=== PATIENT | female | born 1995 | race Caucasian/White ===

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

== ENCOUNTER 2017-02-08 12:16 | Emergency (ER) | payer OTHER ==
[~2017-02-08] VITALS: Ht 165.1 cm; Wt 64.5 kg
[~2017-02-08 12:16] MED LIST changes: +ACET500C5 PO; +BENZ100C70 PO; +IBUP400T22 PO; +POLY10DR19 BOTH EYES; +SODI30SP2 NS
[2017-02-08 12:17] VITALS: Ht 165.1 cm; Wt 64.5 kg
[2017-02-08] MEDS ORDERED: CETI-240 PO (14:15)
--- NOTE | 2017-02-08 14:46 | ERD ---
ER Documentation Chief Complaint Chief Complaint right eye pain x 2 weeks HPI Otherwise healthy 22-year-old female presenting with a chief complaint of eye discharge 2 months. Discharge described as white. Nonpruritic, no change in vision. Patient states that this has happened in the past has spontaneously resolved. Has not taken any medications for these symptoms. Also describes associated congestion that occurs this time the year every year. Has not been diagnosed with any medical conditions. Denies fever, chills, difficulty breathing, chest pain, abdominal pain, nausea, vomiting, diarrhea, or constipation. Patient has no other complaints and describes no other associated manifestations. Nursing notes have been reviewed and are consistent with history given. ROS All systems reviewed and are negative except as per history of present illness. Medications Home Meds Active Scripts Cetirizine Hcl* (Cetirizine Hcl*) 10 Mg Tablet, 10 MG PO DAILY, #30 TAB Prov:ESTUARDO IZAGUIRRE PA-C 02/08/17 Benzonatate* (Tessalon Perle*) 100 Mg Capsule, 100 MG PO Q8H Y for COUGH for 14 Days, CAP Prov:DIONE GATES PA-C 07/22/16 Sodium Chloride (Saline Nasal [place]) 30 Ml [place], 30 ML NS BID for 14 Days, SPRAY Prov:DIONE GATES PA-C 07/22/16 Acetaminophen* (Tylophen*) 500 Mg Capsule, 1 CAP PO Q6H Y for PAIN AND OR ELEVATED TEMP, #20 CAP Prov:DIONE GATES PA-C 07/22/16 Ibuprofen* (Motrin*) 400 Mg Tab, 400 MG PO Q6, #30 TAB Prov:DIONE GATES PA-C 07/22/16 Polymyxin B Sulfate-TMP* (Polymyxin B-TMP Eye Drops*) 10 Ml Drops, 1 DROP BOTH EYES QID for 7 Days, EA Prov:DIONE GATES PA-C 07/22/16 Ondansetron (Ondansetron Odt) 4 Mg Tab.rapdis, 4 MG PO Q6H Y for NAUSEA AND/OR VOMITING, #10 TAB Prov:RAQUEL RAMOS PA-C 07/17/16 Ibuprofen* (Motrin*) 600 Mg Tab, 600 MG PO Q6, #30 TAB Prov:RAQUEL RAMOS PA-C 07/17/16 Ibuprofen* (Motrin*) 600 Mg Tab, 600 MG PO Q6H Y for PAIN AND OR ELEVATED TEMP, #30 TAB Prov:MARGUERITE HOLDEN MD 06/29/15 Reported Medications [no meds] No Conflict Check 09/30/11 Allergies Allergies: Coded Allergies: No Known Allergy (Unverified , 02/08/17) PMhx/Soc Medical and Surgical Hx: pt denies Medical Hx, pt denies Surgical Hx History of Surgery: No Anesthesia Reaction: No Hx Neurological Disorder: No Hx Respiratory Disorders: No Hx Cardiac Disorders: No Hx Psychiatric Problems: No Hx Miscellaneous Medical Probl: No Hx Alcohol Use: No Hx Substance Use: Yes (marijuana) Hx Tobacco Use: No Physical Exam Vitals Vital Signs Date Time Temp Pulse Resp B/P Pulse Ox O2 Delivery O2 Flow Rate FiO2 02/08/17 12:17 98.1 58 16 126/57 97 Physical Exam Const: Healthy appearing 22-year-old female no acute distress. Head: Atraumatic Eyes: Normal Conjunctiva. PERRLA, EOMI bilaterally. No nystagmus. ENT: Normal External Ears, Nose and Mouth. Neck: Full range of motion..~ No meningismus. Resp: Clear to auscultation bilaterally Cardio: Regular rate and rhythm, no murmurs. Cap refill less than 2 seconds. Radial pulses 2+ bilaterally. Abd: Soft, non tender, non distended. Normal bowel sounds Skin: No petechiae or rashes Back: No midline or flank tenderness Ext: No cyanosis, or edema Neur: Awake and alert Psych: Normal Mood and Affect Procedures/MDM 22-year-old female presenting with signs and symptoms most consistent with seasonal allergies. Patient will be started on Zyrtec with instructions to follow-up with PCP in the next 1-3 days. I have no suspicion for bacterial involvement, endangerment of vision, endangerment of airway or other life- threatening pathologies. I have spoke with the patient regarding their condition and future management. They have verbally responded that they understand their status and treatment plan. The patients vitals are stable, and their current condition is appropriate for discharge. The patient will be given discharge instructions with return precautions. Departure Diagnosis: Primary Impression: Eye problem Additional Impression: Environmental allergies Condition: Stable Patient Instructions: Nasal Allergies: Related Problems Additional Instructions: Follow up with your PCP within the next 1-3 days for a more thorough evaluation and a possible referral to a specialist. Return the the emergency department immediately if symptoms worsen or change. If you have any questions regarding medications, ask your pharmacist or us before you leave. If any adverse reactions occur while taking your medications, discontinue the treatment and return to the emergency department immediately. Take your medications as directed, and complete the entire course of treatment. ESTUARDO IZAGUIRRE PA-C Feb 08, 2017 14:46
== END 2017-02-08 14:27 | disposition home or self-care (01) ==
LOC: FTE 12:16
DX: H57.11 Ocular pain, right eye (principal)
CPT/HCPCS: 99283

== ENCOUNTER 2017-04-09 19:30 | Emergency (ER) | payer OTHER ==
[~2017-04-09] VITALS: Ht 160 cm; Wt 70.0 kg
[~2017-04-09 19:30] MED LIST changes: +CETI-240 PO
[2017-04-09 20:22] VITALS: Ht 160 cm; Wt 70.0 kg
[2017-04-09] MEDS ORDERED: ONDANSETRON 4 MG INJ IV STA (21:27)
[2017-04-09] MEDS ORDERED: KETOROLAC 30 MG INJ IV STA (21:27)
[2017-04-09 21:52] LABS: URINE BLOOD (Dip) POC Trace-lysed (NEGATIVE)
[2017-04-09 22:48] LABS: BASOPHIL # 0.1 10^3/ul (0.0-0.1); BASOPHILS % 0.5 % (0.0-2.0); EOSINOPHILS # 1.1 10^3/ul (0.0-0.5); EOSINOPHILS % 10.8 % (0.0-7.0); HEMOGLOBIN 13.7 g/dl (12.0-16.0); LYMPHOCYTES # 3.1 10^3/ul (0.8-2.9); LYMPHOCYTES % 31.1 % (18.0-55.0); MEAN CORPUSCULAR HEMOGLOBIN 31.9 pg (29.0-33.0); MEAN CORPUSCULAR HGB CONC 34.3 g/dl (32.0-37.0); MEAN CORPUSCULAR VOLUME 93.2 fl (72.0-104.0); MEAN PLATELET VOLUME 10.8 fl (7.4-10.4); MONOCYTE # 0.5 10^3/ul (0.3-0.9); MONOCYTES % 4.9 % (0.0-13.0); NEUTROPHIL # 5.2 10^3/ul (1.6-7.5); NEUTROPHILS % 52.5 % (30.0-74.0); PLATELET COUNT 238 10^3/UL (140-415); RED BLOOD COUNT 4.29 10^6/ul (4.20-5.40); RED CELL DISTRIBUTION WIDTH 12.3 % (11.5-14.5); WHITE BLOOD COUNT 9.8 10^3/ul (4.8-10.8)
[2017-04-09 23:05] LABS: ADD UMIC NO; UR ASCORBIC ACID NEGATIVE (NEGATIVE); UR BILIRUBIN (Dip) NEGATIVE (NEGATIVE); UR BLOOD (Dip) NEGATIVE (NEGATIVE); UR CLARITY SLIGHTLY CLOUDY (CLEAR); UR COLOR YELLOW (YELLOW); UR GLUCOSE (Dip) NEGATIVE (NEGATIVE); UR KETONES (Dip) NEGATIVE (NEGATIVE); UR LEUKOCYTE ESTERASE (Dip) NEGATIVE Leu/ul (NEGATIVE); UR MUCUS MANY /HPF (NONE SEEN); UR NITRITE (Dip) NEGATIVE (NEGATIVE); UR RBC 1 /HPF (0-5); UR SPECIFIC GRAVITY (Dip) 1.028 (1.003-1.030); UR SQUAMOUS EPITHELIAL CELL FEW /HPF (FEW); UR TOTAL PROTEIN (Dip) NEGATIVE (NEGATIVE); UR UROBILINOGEN (Dip) NEGATIVE (NEGATIVE)
[2017-04-09 23:57] LABS: ALBUMIN 4.2 g/dl (3.3-4.9); ALBUMIN/GLOBULIN RATIO 1.23; BILIRUBIN,INDIRECT 0.6 mg/dl (0-1.1); BILIRUBIN,TOTAL 0.6 mg/dl (0.2-1.3); CALCIUM 9.9 mg/dl (8.4-10.2); CREATININE 0.8 mg/dl (0.44-1.00); POTASSIUM 3.8 mmol/L (3.5-5.1); TOTAL PROTEIN 7.6 g/dl (6.1-8.1)
[2017-04-10] MEDS ORDERED: FAMOTIDINE 20 MG INJ IV ONE
--- NOTE | 2017-04-10 00:04 | ERD ---
ER Documentation Chief Complaint Chief Complaint abd pain, cough and fever 1 week HPI This is a 22-year-old female presents to ER with left upper abdominal pain, cough and fever 1 week. Patient states she has had a dry, nonproductive cough and tactile fevers at home. Patient reports left upper abdominal pain that has been worsening over the last week. No vomiting or diarrhea. No constipation. Patient describes pain as sharp. Pain is nonradiating. ROS All systems reviewed and are negative except as per history of present illness. Medications Home Meds Active Scripts Cetirizine Hcl* (Cetirizine Hcl*) 10 Mg Tablet, 10 MG PO DAILY, #30 TAB Prov:ESTUARDO IZAGUIRRE PA-C 02/08/17 Benzonatate* (Tessalon Perle*) 100 Mg Capsule, 100 MG PO Q8H Y for COUGH for 14 Days, CAP Prov:DIONE GATES PA-C 07/22/16 Sodium Chloride (Saline Nasal [place]) 30 Ml [place], 30 ML NS BID for 14 Days, SPRAY Prov:DIONE GATES PA-C 07/22/16 Acetaminophen* (Tylophen*) 500 Mg Capsule, 1 CAP PO Q6H Y for PAIN AND OR ELEVATED TEMP, #20 CAP Prov:DIONE GATES PA-C 07/22/16 Ibuprofen* (Motrin*) 400 Mg Tab, 400 MG PO Q6, #30 TAB Prov:DIONE GATES PA-C 07/22/16 Polymyxin B Sulfate-TMP* (Polymyxin B-TMP Eye Drops*) 10 Ml Drops, 1 DROP BOTH EYES QID for 7 Days, EA Prov:DIONE GATES PA-C 07/22/16 Ondansetron (Ondansetron Odt) 4 Mg Tab.rapdis, 4 MG PO Q6H Y for NAUSEA AND/OR VOMITING, #10 TAB Prov:RAQUEL RAMOS PA-C 07/17/16 Ibuprofen* (Motrin*) 600 Mg Tab, 600 MG PO Q6, #30 TAB Prov:RAQUEL RAMOS PA-C 07/17/16 Ibuprofen* (Motrin*) 600 Mg Tab, 600 MG PO Q6H Y for PAIN AND OR ELEVATED TEMP, #30 TAB Prov:MARGUERITE HOLDEN MD 06/29/15 Reported Medications [no meds] No Conflict Check 09/30/11 Allergies Allergies: Coded Allergies: No Known Allergy (Unverified , 02/08/17) PMhx/Soc Medical and Surgical Hx: pt denies Medical Hx, pt denies Surgical Hx History of Surgery: No Anesthesia Reaction: No Hx Neurological Disorder: No Hx Respiratory Disorders: No Hx Cardiac Disorders: No Hx Psychiatric Problems: No Hx Miscellaneous Medical Probl: No Hx Alcohol Use: No Hx Substance Use: Yes (marijuana) Hx Tobacco Use: No Smoking Status: Never smoker Physical Exam Vitals Vital Signs Date Time Temp Pulse Resp B/P Pulse Ox O2 Delivery O2 Flow Rate FiO2 04/09/17 20:22 98.1 54 20 108/68 99 Physical Exam Const: Alert Head: Atraumatic Eyes: Normal Conjunctiva ENT: Normal External Ears, Nose and Mouth. Neck: Full range of motion..~ No meningismus. Resp: Clear to auscultation bilaterally. No wheezing, rhonchi or crackles. No stridor or labored breathing. Cardio: Regular rate and rhythm, no murmurs Abd: Soft, non distended. Normal bowel sounds, left upper abdominal pain tenderness. splenomegaly Skin: No petechiae or rashes Back: No midline or flank tenderness Ext: No cyanosis, or edema Neur: Awake and alert Psych: Normal Mood and Affect Result Diagram: 04/09/17 2200 04/09/17 2332 Results 24 hrs Laboratory Tests Test 04/09/17 21:00 04/09/17 21:53 04/09/17 22:00 04/09/17 23:32 Urine Color YELLOW Urine Clarity SLIGHTLY CLOUDY Urine pH 6.0 Urine Specific Branch 1.028 Urine Ketones NEGATIVEmg/dL Urine Nitrite NEGATIVEmg/dL Urine Bilirubin NEGATIVEmg/dL Urine Urobilinogen NEGATIVEmg/dL Urine Leukocyte Esterase NEGATIVELeu/ul Urine Microscopic RBC 1/HPF Urine Microscopic WBC 2/HPF Urine Squamous Epithelial Cells FEW/HPF Urine Mucus MANY/HPF Urine Hemoglobin NEGATIVEmg/dL Urine Glucose NEGATIVEmg/dL Urine Total Protein NEGATIVEmg/dl Bedside Urine pH (LAB) 6.5 Bedside Urine Protein (LAB) Negative Bedside Urine Glucose (UA) Negative Bedside Urine Ketones (LAB) Trace Bedside Urine Blood Trace-lysed Bedside Urine Nitrite (LAB) Negative Bedside Urine Leukocyte Esterase (L Negative White Blood Count 9.810^3/ul Red Blood Count 4.2910^6/ul Hemoglobin 13.7g/dl Hematocrit 40.0% Mean Corpuscular Volume 93.2fl Mean Corpuscular Hemoglobin 31.9pg Mean Corpuscular Hemoglobin Concent 34.3g/dl Red Cell Distribution Width 12.3% Platelet Count 72190^3/UL Mean Platelet Volume 10.8fl Neutrophils % 52.5% Lymphocytes % 31.1% Monocytes % 4.9% Eosinophils % 10.8% Basophils % 0.5% Nucleated Red Blood Cells % 0.0/100WBC Neutrophils # 5.210^3/ul Lymphocytes # 3.110^3/ul Monocytes # 0.510^3/ul Eosinophils # 1.110^3/ul Basophils # 0.110^3/ul Nucleated Red Blood Cells # 0.010^3/ul Serum HCG, Qualitative NEGATIVE Sodium Level 141mmol/L Potassium Level 3.8mmol/L Chloride Level 104mmol/L Carbon Dioxide Level 26mmol/L Anion Gap 15 Blood Urea Nitrogen 13mg/dl Creatinine 0.80mg/dl Glucose Level 82mg/dl Calcium Level 9.9mg/dl Total Bilirubin 0.6mg/dl Direct Bilirubin 0.00mg/dl Indirect Bilirubin 0.6mg/dl Aspartate Amino Transf (AST/SGOT) 27IU/L Alanine Aminotransferase (ALT/SGPT) 32IU/L Alkaline Phosphatase 45IU/L Total Protein 7.6g/dl Albumin 4.2g/dl Globulin 3.40g/dl Albumin/Globulin Ratio 1.23 Lipase 92U/L Current Medications Medications (Trade) Dose Ordered Sig/Melina Route PRN Reason Start Time Stop Time Status Last Admin Dose Admin Ondansetron HCl (Zofran Inj) 4 mg ONCE STAT IV 04/09/17 21:27 04/09/17 21:29 DC 04/09/17 22:15 Ketorolac Tromethamine (Toradol) 30 mg ONCE STAT IV 04/09/17 21:27 04/09/17 21:29 DC 04/09/17 22:15 Procedures/MDM MDM: 22 year old female presents the emergency department for abdominal pain, cough and fever 1 week. Patient has left upper abdominal pain and tenderness on physical exam. Lung sounds are clear. Patient is afebrile vital signs are stable. CBC shows no significant anemia or infection. CMP shows no significant electrolyte imbalance. Normal creatinine and BUN. Normal lipase. Normal glucose. UA is negative for infection. Patient signed out to Deepa Johnson NP pending CT abdomen and pelvis. Departure Diagnosis: Primary Impression: Abdominal pain Condition: Stable MANOLO MORALES NP Apr 10, 2017 00:04
--- NOTE | 2017-04-10 00:33 | RADRPT ---
PROCEDURE: CT Abdomen and Pelvis without contrast. CLINICAL INDICATION: Left upper quadrant abdominal pain. TECHNIQUE: CT scan of the abdomen and pelvis was performed on a multidetector slice CT scanner. No intravenous contrast material was utilized. Sagittal and coronal reformatted images were obtained fr om the axial source images. Images were reviewed on a high-resolution PACS workstation. Exam CTDlvol = 6 mGy and DLP = 336 Gy-cm. One of the following 3 dose reduction techniques were used: Automated exposure control; adjustment of the mA and/or kV according to patient size; or use of iterative joy nstruction technique. DICOM images are available. COMPARISON: None. FINDINGS: There is no obstruction or ileus. The appendix is not identified. There is no secondary evidence fo r appendicitis.. There is no free fluid. The liver is overall normal in size. No intrahepatic lesions are identified. The gallbladder is norm al in appearance. There is no definite biliary ductal dilation. Pancreas is normal in appearance. Th e spleen is unremarkable. There are no adrenal masses. The aorta is normal caliber. There is a ill-defined hyperdensities in the bilateral renal medullary region. Kidneys are otherwise normal in appearance without hydronephrosis, mass or obstructing calculus. There is no perinephric collection. Ureters are of normal caliber and without evidence for an obstructing calculus The urina ry bladder is contracted. The uterus and ovaries are grossly unremarkable. Limited evaluation of the lung bases is unremarkable. There are bilateral L5 of the defects without spondylolisthesis. IMPRESSION: 1. 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 No dis crete obstructing calculus. No hydronephrosis. Collapsed urinary bladder. 2. No bowel obstruction or ileus. 3. Appendix not identified. No secondary evidence for appendicitis. 4. 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 RPTAT: HMVK .Rg Holland MD, Date Time Electronically viewed and signed by .Rg Holland MD, MD on 04/10/2017 00:33 .K/
[2017-04-10] MEDS ORDERED: ACET500C5 PO (01:01)
--- NOTE | 2017-04-10 01:07 | EN ---
Date/Time of Note Date/Time of Note DATE: 04/10/17 TIME: 01:04 ER Progress Note Patient signed out to me by Manolo Gu NP pending CT results. PROCEDURE: CT Abdomen and Pelvis without contrast. CLINICAL INDICATION: Left upper quadrant abdominal pain. TECHNIQUE: CT scan of the abdomen and pelvis was performed on a multidetector slice CT scanner. No intravenous contrast material was utilized. Sagittal and coronal reformatted images were obtained from the axial source images. Images were reviewed on a high-resolution PACS workstation. Exam CTDlvol = 6 mGy and DLP = 336 Gy-cm. One of the following 3 dose reduction techniques were used: Automated exposure control; adjustment of the mA and/or kV according to patient size; or use of iterative reconstruction technique. DICOM images are available. COMPARISON: None. FINDINGS: There is no obstruction or ileus. The appendix is not identified. There is no secondary evidence for appendicitis.. There is no free fluid. The liver is overall normal in size. No intrahepatic lesions are identified. The gallbladder is normal in appearance. There is no definite biliary ductal dilation. Pancreas is normal in appearance. The spleen is unremarkable. There are no adrenal masses. The aorta is normal caliber. There is a ill-defined hyperdensities in the bilateral renal medullary region. Kidneys are otherwise normal in appearance without hydronephrosis, mass or obstructing calculus. There is no perinephric collection. Ureters are of normal caliber and without evidence for an obstructing calculus The urinary bladder is contracted. The uterus and ovaries are grossly unremarkable. Limited evaluation of the lung bases is unremarkable. There are bilateral L5 of the defects without spondylolisthesis. IMPRESSION: 1. 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 No discrete obstructing calculus. No hydronephrosis. Collapsed urinary bladder. 2. No bowel obstruction or ileus. 3. Appendix not identified. No secondary evidence for appendicitis. 4. 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 RPTAT: HMVK .Rg Holland MD, Date Time Electronically viewed and signed by .Rg Holland MD, MD on 04/10/2017 00:33 .K/ CC: MANOLO GU NP I reexamined the patient. Patient is noted to have tenderness in the left lower ribs region, as well as the left upper quadrant. Patient reports her abdominal pain improved after Pepcid. I suspect her abdominal pain may be due to either gastritis, or rib contusion, or combination of both. I discussed with Dr. Anderson regarding patient CT results. Dr. Anderson agrees the patient may be discharged home for outpatient management. Patient appears well, stable for discharge and outpatient management. Medical decision making shared with patient and family. Education provided to patient and family. Patient and family expressed understanding of the plan. Medications on discharge: Tylenol. Follow-up: Primary care provider in 2-3 days or return to ED if worse. Disclaimer: Inadvertent spelling and grammatical errors are likely due to EHR/ dictation software use and do not reflect on the overall quality of patient care. Also, please note that the electronic time recorded on this note does not necessarily reflect the actual time of the patient encounter. STEVE TAVERAS NP Apr 10, 2017 01:07
[2017-04-10 01:15] VITALS: BP 107/67; PULSE 57; RESP 16; TEMP 98
== END 2017-04-10 01:26 | disposition home or self-care (01) ==
LOC: FTE 19:30
DX: R10.12 Left upper quadrant pain (principal)
CPT/HCPCS: 36415; 74177; 80053; 81001; 83690; 84703; 85025; 96374; 96375; J1885; J2405; Z7502; Z7610; 81003

== ENCOUNTER 2017-09-12 06:37 | Emergency (ER) | END 2017-09-12 10:00 | disposition home or self-care (01) ==

== ENCOUNTER 2018-02-19 21:17 | Inpatient (IN) | END 2018-02-20 17:47 | disposition home or self-care (01) | DRG 916 ==

== ENCOUNTER 2018-06-07 15:34 | Emergency (ER) | payer SELFPAY ==
[~2018-06-07] VITALS: Wt 64.8 kg
[~2018-06-07 15:34] MED LIST changes: +ALBU18HF INHALATION; +ALBU2.5V3 NEB; +AMOX500C2 PO; -BENZ100C70 PO; -CETI-240 PO; +DIPH25CA6 PO; +EPIN0.3A3 IM; +FLUT9.9S NASAL; -IBUP400T22 PO; +MED4DP PO; -ONDA4TAB14 PO; -POLY10DR19 BOTH EYES; +RANI150T35 PO; -SODI30SP2 NS; -no meds
[2018-06-07 15:46] VITALS: BP 114/58; PULSE 73; RESP 20
== END 2018-06-07 22:16 | disposition left against medical advice (07) ==
LOC: FTE 15:34
DX: Z53.21 Procedure and treatment not carried out due to patient leaving prior to being seen by health care provider (principal)

== ENCOUNTER 2018-09-15 15:15 | Emergency (ER) | payer SELFPAY ==
[~2018-09-15] VITALS: Ht 160 cm; Wt 65.0 kg
[2018-09-15 15:22] VITALS: BP 107/65; PULSE 67; RESP 18; Ht 160 cm; Wt 65.0 kg
[2018-09-15] MEDS ORDERED: PRED20TA PO (16:18)
[2018-09-15] MEDS ORDERED: BEN25 PO (16:18)
--- NOTE | 2018-09-15 16:20 | ERD ---
ER Documentation Chief Complaint Chief Complaint NAUSEA/DIARRHEA X 2 DAYS , HIVES ON BACK , LT SIDE OF FACE SWELLING HPI 23-year-old female states she woke up with hives all over her back and bilateral hips. She stated she had some swelling around the left side of her face but she put ice on her face and now it has resolved. No difficulty breathing. Denies any new foods soaps or irritants she can think of. No fevers. ROS All systems reviewed and are negative except as per history of present illness. Medications Home Meds Active Scripts Prednisone* (Prednisone*) 20 Mg Tab, 60 MG PO DAILY for 4 Days, TAB Prov:GUERLINE BRUSH PA-C 09/15/18 Diphenhydramine Hcl* (Benadryl*) 25 Mg Cap, 25 MG PO Q6, #30 CAP Prov:GUERLINE BRUSH PA-C 09/15/18 Ranitidine Hcl* (Zantac*) 150 Mg Tablet, 150 MG PO BID for 5 Days, #10 TAB Prov:SERGEY RILEY MD 05/26/18 Ibuprofen* (Motrin*) 600 Mg Tab, 600 MG PO Q8, #15 TAB Prov:SERGEY RILEY MD 05/26/18 Amoxicillin* (Amoxicillin*) 500 Mg Cap, 500 MG PO TID for 7 Days, CAP Prov:SERGEY RILEY MD 05/26/18 Diphenhydramine Hcl (Benadryl) 25 Mg Cap, 25 MG PO Q8 PRN for ITCHING for 10 Days, CAP Prov:PAOLA CHAVEZ MD 02/20/18 Epinephrine (EPINEPHRINE) 0.3 Mg/0.3 Ml Pen.injctr, 0.3 MG IM prn for 3 for 3 Days, SYR Prov:PAOLA CHAVEZ MD 02/20/18 Methylprednisolone* (Medrol* DOSE PACK) 4 Mg/Dose-Pack Tab.ds.pk, 4 MG PO . DIRECTED for 3 Days, PACKET Prov:PAOLA CHAVEZ MD 02/20/18 Fluticasone Propionate (Flonase Allergy Relief) 9.9 Ml [place].susp, 2 SPRAY NASAL DAILY, #1 BOTTLE TO EACH NOSTRIL Prov:CAREY ABDI PA-C 09/12/17 Albuterol Sulfate* (Ventolin HFA*) 18 Gm Hfa.aer.ad, 2 PUFF INHALATION Q4H, #1 INHALER Prov:CAREY ABDI PA-C 09/12/17 Albuterol Sulfate* (Albuterol Sulfate* Neb) 0.083%-3 Ml Neb, 2.5 MG NEB Q4 PRN for SHORTNESS OF BREATH, #30 EA Prov:CAREY ABDI PA-C 09/12/17 Acetaminophen* (Tylophen*) 500 Mg Capsule, 1 CAP PO Q6H PRN for PAIN AND OR ELEVATED TEMP, #20 CAP Prov:DIONE GATES PA-C 07/22/16 Ibuprofen* (Motrin*) 600 Mg Tab, 600 MG PO Q6H PRN for PAIN AND OR ELEVATED TEMP, #30 TAB Prov:MARGUERITE HOLDEN MD 06/29/15 Allergies Allergies: Coded Allergies: No Known Allergy (Unverified , 02/19/18) PMhx/Soc History of Surgery: No Anesthesia Reaction: No Hx Neurological Disorder: No Hx Respiratory Disorders: No Hx Cardiac Disorders: No Hx Psychiatric Problems: No Hx Miscellaneous Medical Probl: No Hx Alcohol Use: No Hx Substance Use: Yes (marijuana) Hx Tobacco Use: No FmHx Family History: No diabetes Physical Exam Vitals Vital Signs Date Temp Pulse Resp B/P (MAP) Pulse Ox O2 O2 Flow FiO2 Time Delivery Rate 09/15/18 98.7 67 18 107/65 100 15:22 (79) Physical Exam Const: No acute distress Head: Atraumatic Eyes: Normal Conjunctiva ENT: Normal External Ears, Nose and Mouth. Neck: Full range of motion. No meningismus. Resp: Clear to auscultation bilaterally Cardio: Regular rate and rhythm, no murmurs Skin: Hives all over her back and bilateral hips Results 24 hrs Current Medications Medications Dose Sig/Melina Start Time Status Last (Trade) Ordered Route PRN Stop Time Admin Dose Reason Admin Prednisone 60 mg ONCE ONCE 09/15/18 (Prednisone) PO 16:30 09/15/18 16:31 Procedures/MDM Patient has allergic reaction type rash. She was given a dose of prednisone here prescription for short course of prednisone as well as prescription for Benadryl. Patient counseled regarding my diagnostic impression and care plan. Prior to discharge all questions answered. Pt agrees with treatment plan and understands strict return precautions. Pt is instructed to follow up with primary care provider within 24-48 hours. Precautionary instructions provided including instructions to return to the ER if not improving or for any worsening or changing symptoms or concerns. Departure Diagnosis: Primary Impression: Rash Condition: Stable Patient Instructions: Self-Care for Skin Rashes Additional Instructions: Call your primary care doctor TOMORROW for an appointment during the next 1-2 days.See the doctor sooner or return here if your condition worsens before your appointment time. GUERLINE BRUSH PA-C Sep 15, 2018 16:20
[2018-09-15] MEDS ORDERED: predniSONE 20 MG TAB PO ONE (16:30)
== END 2018-09-15 16:40 | disposition home or self-care (01) ==
LOC: FTE 15:15
DX: R21 Rash and other nonspecific skin eruption (principal)
CPT/HCPCS: 99283; J7512

== ENCOUNTER → 2018-10-27 | Emergency (ER) | payer OTHER ==
[~2018-10-27] VITALS: Ht 157.5 cm; Wt 70.0 kg
[~2018-10-27] MED LIST changes: +BEN25 PO; +DEXAMETHASONE 4 MG TAB PO ONE; +FAMOTIDINE 20 MG TAB PO ONE; +FEXO180T61 PO; +PRED20TA PO
[2018-10-27 12:21] VITALS: BP 100/68; PULSE 79; RESP 18; Ht 157.5 cm; Wt 70.0 kg
--- NOTE | 2018-10-27 12:47 | ERD ---
ER Documentation Chief Complaint Chief Complaint LAST NIGHT HIVES, TODAY LIPS SWELLING, NO SOB HPI 23-year-old female presents with what she describes as hives starting yesterday. She also has some swelling of her lower lip. The rash was itchy. No shortness of breath, fevers, recent illnesses. She denies any known allergies or inciting events or foods or medicines. She has had this intermittently in the past without medical treatment. ROS All systems reviewed and are negative except as per history of present illness. Medications Home Meds Active Scripts Fexofenadine Hcl* (Humaira*) 180 Mg Tablet, 180 MG PO DAILY, #30 TAB Prov:MOODY HURST MD 10/27/18 Prednisone* (Prednisone*) 20 Mg Tab, 60 MG PO DAILY for 4 Days, TAB Prov:GUERLINE BRUSH PA-C 09/15/18 Diphenhydramine Hcl* (Benadryl*) 25 Mg Cap, 25 MG PO Q6, #30 CAP Prov:GUERLINE BRUSH PA-C 09/15/18 Ranitidine Hcl* (Zantac*) 150 Mg Tablet, 150 MG PO BID for 5 Days, #10 TAB Prov:SERGEY RILEY MD 05/26/18 Ibuprofen* (Motrin*) 600 Mg Tab, 600 MG PO Q8, #15 TAB Prov:SERGEY RILEY MD 05/26/18 Amoxicillin* (Amoxicillin*) 500 Mg Cap, 500 MG PO TID for 7 Days, CAP Prov:SERGEY RILEY MD 05/26/18 Diphenhydramine Hcl (Benadryl) 25 Mg Cap, 25 MG PO Q8 PRN for ITCHING for 10 Days, CAP Prov:PAOLA CHAVEZ MD 02/20/18 Epinephrine (EPINEPHRINE) 0.3 Mg/0.3 Ml Pen.injctr, 0.3 MG IM prn for 3 for 3 Days, SYR Prov:PAOLA CHAVEZ MD 02/20/18 Methylprednisolone* (Medrol* DOSE PACK) 4 Mg/Dose-Pack Tab.ds.pk, 4 MG PO . DIRECTED for 3 Days, PACKET Prov:PAOLA CHAVEZ MD 02/20/18 Fluticasone Propionate (Flonase Allergy Relief) 9.9 Ml [place].susp, 2 SPRAY NASAL DAILY, #1 BOTTLE TO EACH NOSTRIL Prov:CAREY ABDI PA-C 09/12/17 Albuterol Sulfate* (Ventolin HFA*) 18 Gm Hfa.aer.ad, 2 PUFF INHALATION Q4H, #1 INHALER Prov:CAREY ABDI PA-C 09/12/17 Albuterol Sulfate* (Albuterol Sulfate* Neb) 0.083%-3 Ml Neb, 2.5 MG NEB Q4 PRN for SHORTNESS OF BREATH, #30 EA Prov:CAREY ABDI PA-C 09/12/17 Acetaminophen* (Tylophen*) 500 Mg Capsule, 1 CAP PO Q6H PRN for PAIN AND OR ELEVATED TEMP, #20 CAP Prov:DIONE GATES PA-C 07/22/16 Ibuprofen* (Motrin*) 600 Mg Tab, 600 MG PO Q6H PRN for PAIN AND OR ELEVATED TEMP, #30 TAB Prov:MARGUERITE HOLDEN MD 06/29/15 Allergies Allergies: Coded Allergies: No Known Allergy (Unverified , 02/19/18) PMhx/Soc History of Surgery: No Anesthesia Reaction: No Hx Neurological Disorder: No Hx Respiratory Disorders: No Hx Cardiac Disorders: No Hx Psychiatric Problems: No Hx Miscellaneous Medical Probl: No Hx Alcohol Use: No Hx Substance Use: Yes (marijuana) Hx Tobacco Use: No FmHx Family History: No diabetes, No coronary disease, No other Physical Exam Vitals Vital Signs Date Temp Pulse Resp B/P (MAP) Pulse Ox O2 O2 Flow FiO2 Time Delivery Rate 10/27/18 98.1 79 18 100/68 99 12:21 (79) Physical Exam Const: No acute distress Head: Atraumatic Eyes: Normal Conjunctiva ENT: Normal External Ears, Nose and Mouth. Minimal lower lip swelling. Airway patent. Neck: Full range of motion. No meningismus. Resp: Clear to auscultation bilaterally Cardio: Regular rate and rhythm, no murmurs Abd: Soft, non tender, non distended. Normal bowel sounds Skin: No petechiae or rashes Back: No midline or flank tenderness Ext: No cyanosis, or edema Neur: Awake and alert Psych: Normal Mood and Affect Results 24 hrs Current Medications Medications Dose Sig/Melina Start Time Status Last (Trade) Ordered Route PRN Stop Time Admin Dose Reason Admin Famotidine 20 mg ONCE ONCE 10/27/18 (Pepcid) PO 13:00 10/27/18 13:01 12 mg ONCE ONCE 10/27/18 Dexamethasone PO 13:00 (Decadron) 10/27/18 13:01 Procedures/MDM She presents with symptoms and a history suggestive of likely urticaria or mild angioedema. She has no signs of airway obstruction, sepsis, anaphylaxis, and is currently well-appearing. Patient was given Decadron 12 mg by mouth and Pepcid 20 mg by mouth as she is driving. She will be discharged home with a prescription of Humaira, recommendations for return precautions for shortness of breath, fevers, worsening rashes, swelling, new worsening symptoms with primary care doctor. I recommended allergy testing for persistent or recurrent symptoms. The patient was stable with no new complaints during the ER course. Clinically, there is no current evidence to suggest meningitis, sepsis, acute abdomen, pneumonia, stroke, acute coronary syndrome, pulmonary embolism, aortic dissection or any other emergent condition appearing to require further evaluation or hospitalization. Patient counseled regarding my diagnostic impression and care plan. Prior to discharge all questions answered. Pt agrees with treatment plan and understands strict return precautions. Pt is instructed to follow up with primary care provider within 24-48 hours. Precautionary instructions provided including instructions to return to the ER if not improving or for any worsening or changing symptoms or concerns. Disclaimer: Inadvertent spelling and grammatical errors are likely due to EHR/dictation software use and do not reflect on the overall quality of patient care. Also, please note that the electronic time recorded on this note does not necessarily reflect the actual time of the patient encounter. Departure Diagnosis: Primary Impression: Hives Condition: Stable Patient Instructions: Angioedema, Hives Additional Instructions: Likely unspecified allergy. Apply cold compresses to lips. Observe environment for possible allergies. Recommend primary doctor for allergy testing for persistent or recurrent symptoms. Recheck sooner for shortness of breath, fevers, new worsening symptoms. MOODY HURST MD Oct 27, 2018 12:47
== END | disposition home or self-care (01) ==
LOC: FTE 12:15
DX: L50.9 Urticaria, unspecified (principal)
CPT/HCPCS: Z7502; Z7610; 99283